=== PATIENT | female | born 1935 | race Caucasian/White ===

== ENCOUNTER 2023-05-16 20:18 | Inpatient (IN) | payer MEDICARE, MEDICAID ==
[~2023-05-16] VITALS: Ht 154.9 cm; Wt 49.4 kg
[~2023-05-16 20:18] MED LIST: CRAN425C6 GT; FAMO20TA8 GT; LEVO250T74 MT; LEVO75CA5 GT; QUET100T GT
[2023-05-16 20:25] VITALS: O2SAT 99
[2023-05-16 22:48] LABS: CHLORIDE 93 mEq/L (98-107); INDEX HEMOLYSI 2 (1-3); INDEX ICTERIC 1 (1-4); INDEX LIPEMIC 1 (1-3); POTASSIUM 4.8 mEq/L (3.5-5.1); SODIUM 135 mEq/L (136-145)
[2023-05-16 22:51] LABS: INR 0.9; PROTHROMBIN TIME 9.9 sec (9.6-11.0)
[2023-05-16 22:58] LABS: ALANINE AMINOTRANSFERASE 29 IU/L (13-61); ALBUMIN 2.1 g/dL (3.4-5.0); ASPARTATE AMINOTRANSFERASE 17 IU/L (15-37); BILIRUBIN TOTAL 0.3 mg/dL (0.1-1.0); CALCIUM 7.6 mg/dL (8.5-10.1); CARBON DIOXIDE 27 mEq/L (21-32); GLUCOSE 203 mg/dL (70-105); PROTEIN TOTAL 7.1 g/dL (6.0-8.3); TROPONIN I HIGH SENSITIVITY 14 ng/L (<54)
[2023-05-16] MEDS ORDERED: SODIUM CHLORIDE 0.9% 500 ML IV ONE (23:00)
[2023-05-16 23:03] LABS: UREA NITROGEN BLOOD 182 mg/dL (7-21)
[2023-05-16 23:04] LABS: LACTIC ACID 2.2 mmol/L (0.4-2.0)
[2023-05-16 23:31] LABS: HEMATOCRIT. 23.2 % (36.0-48.0); HEMOGLOBIN. 7.5 g/dL (12.0-16.0); MEAN CORPUSCULAR HGB CONC 32.2 g/dL (31.0-37.0); MEAN CORPUSCULAR VOLUME 96.5 fL (81.0-99.0); MEAN PLATELET VOLUME 9.2 fl (7.4-10.4); PLATELET 259 x1000/uL (130-400); RED BLOOD CELL COUNT 2.41 mill/uL (4.2-5.4); RED CELL DISTRIBUTION WIDTH 15.3 % (11.6-14.6); WHITE BLOOD COUNT 13.6 x1000/uL (4.5-11.0)
[2023-05-16 23:33] LABS: DIFFERENTIAL COMMENT 1
[2023-05-16 23:52] LABS: ANISOCYTOSIS 1+; PLATELET ESTIMATE NORMAL
[2023-05-17 01:01] LABS: CLARITY URINE TURBID (CLEAR); COLOR URINE YELLOW (YELLOW); GLUCOSE URINE TRACE (NEGATIVE); KETONES URINE NEGATIVE (NEGATIVE); LEUKOCYTE ESTERASE URINE 3+ (NEGATIVE); NITRITE URINE NEGATIVE (NEGATIVE); OCCULT BLOOD URINE 2+ (NEGATIVE); PH URINE 7.5 (4.5-8.0); PROTEIN URINE 2+ (NEGATIVE); SPECIFIC GRAVITY URINE 1.012 (1.005-1.030); UROBILINOGEN URINE 0.2 E.U./dL (0.2-1.0)
[2023-05-17 01:34] LABS: BACTERIA URINE 3+; SQUAMOUS EPITHELIAL CELL URINE 1+ /lpf (RARE/1+); WBC URINE TNTC /hpf (0-2)
[2023-05-17] MEDS: SODIUM CHLORIDE 0.9% 1,000 ML IV SCH ×2 (07:52→13:47)
[2023-05-17] MEDS ORDERED: ACETAMINOPHEN 325MG TABLET PO PRN (09:45)
[2023-05-17] MEDS ORDERED: MEROPENEM 1,000 MG in SODIUM CHLORIDE 0.9% 100 ML IV SCH (09:45)
[2023-05-17] MEDS ORDERED: ONDANSETRON HCL 4MG/2ML INJ IV PRN (09:45)
[2023-05-17 12:00] VITALS: BP 103/43; PULSE 80; RESP 17; TEMP 96.9
[2023-05-17 12:15] VITALS: BP 122/52; PULSE 55; RESP 18; TEMP 97.7
[2023-05-17] MEDS: MEROPENEM 500MG in NORMAL SALINE 50ML IV SCH (13:47)
[2023-05-17 18:00] VITALS: BP 108/48; PULSE 86; RESP 18; TEMP 97.4
[2023-05-17 20:00] VITALS: BP 123/57; PULSE 89; RESP 20; TEMP 98.5
[2023-05-18] VITALS (10 sets, daily range): BP systolic 119–146; BP diastolic 53–74; PULSE 74–114; RESP 16–24; TEMP 97.6–98.4
[2023-05-18 07:14] LABS: MEAN CORPUSCULAR HEMOGLOBIN 31.1 pg (28.0-32.0); MEAN CORPUSCULAR HGB CONC 32.9 g/dL (31.0-37.0); MEAN CORPUSCULAR VOLUME 94.6 fL (81.0-99.0); MEAN PLATELET VOLUME 8.5 fl (7.4-10.4); PLATELET 233 x1000/uL (130-400); RED BLOOD CELL COUNT 2.14 mill/uL (4.2-5.4); RED CELL DISTRIBUTION WIDTH 14.9 % (11.6-14.6)
[2023-05-18 07:35] LABS: DIFFERENTIAL COMMENT 1; HEMATOCRIT. 20.2 % (36.0-48.0); HEMOGLOBIN. 6.7 g/dL (12.0-16.0)
[2023-05-18 07:59] LABS: POTASSIUM 3.9 mEq/L (3.5-5.1)
[2023-05-18 08:06] LABS: CALCIUM 6.8 mg/dL (8.5-10.1); CREATININE 3.8 mg/dL (0.6-1.3)
[2023-05-18] MEDS: SODIUM CHLORIDE 0.9% 1,000 ML IV SCH (08:15)
[2023-05-18 11:19] LABS: ANISOCYTOSIS 1+; PLATELET ESTIMATE NORMAL
[2023-05-18] MEDS ORDERED: IPRATROPIUM/ALBUTEROL 0.5-3(2.5)MG/3ML NEB HHN PRN (14:00)
[2023-05-19] VITALS (9 sets, daily range): BP systolic 117–137; BP diastolic 62–72; PULSE 70–80; RESP 16–21; TEMP 97.6–98.2
[2023-05-19 06:54] LABS: HEMATOCRIT. 29.7 % (36.0-48.0); HEMOGLOBIN. 10.2 g/dL (12.0-16.0); MEAN CORPUSCULAR HGB CONC 34.4 g/dL (31.0-37.0); MEAN PLATELET VOLUME 8.4 fl (7.4-10.4); PLATELET 268 x1000/uL (130-400); RED BLOOD CELL COUNT 3.09 mill/uL (4.2-5.4); RED CELL DISTRIBUTION WIDTH 14.7 % (11.6-14.6); WHITE BLOOD COUNT 8.5 x1000/uL (4.5-11.0)
[2023-05-19 07:05] LABS: DIFFERENTIAL COMMENT 1
[2023-05-19 09:05] LABS: CALCIUM 6.6 mg/dL (8.5-10.1); CREATININE 3.6 mg/dL (0.6-1.3)
[2023-05-19] MEDS: MEROPENEM 500MG in NORMAL SALINE 50ML IV SCH (12:00)
[2023-05-19] MEDS: SODIUM CHLORIDE 0.45% 1,000 ML IV SCH ×2 (18:23→23:40)
[2023-05-19 18:42] LABS: PLATELET ESTIMATE NORMAL
[2023-05-20] VITALS (10 sets, daily range): BP systolic 128–142; BP diastolic 51–74; PULSE 67–80; RESP 14–24; TEMP 97.4–98.5
[2023-05-20 06:25] LABS: HEMATOCRIT. 28.3 % (36.0-48.0); HEMOGLOBIN. 9.6 g/dL (12.0-16.0); MEAN CORPUSCULAR HEMOGLOBIN 32.1 pg (28.0-32.0); MEAN CORPUSCULAR HGB CONC 33.8 g/dL (31.0-37.0); PLATELET 295 x1000/uL (130-400); RED BLOOD CELL COUNT 2.97 mill/uL (4.2-5.4); RED CELL DISTRIBUTION WIDTH 14.5 % (11.6-14.6); WHITE BLOOD COUNT 9.5 x1000/uL (4.5-11.0)
[2023-05-20 06:39] LABS: DIFFERENTIAL COMMENT 1
[2023-05-20 07:37] LABS: CALCIUM 6.6 mg/dL (8.5-10.1); CREATININE 3.4 mg/dL (0.6-1.3)
[2023-05-20] MEDS: MEROPENEM 500MG in NORMAL SALINE 50ML IV SCH (11:55)
[2023-05-20] MEDS: SODIUM CHLORIDE 0.45% 1,000 ML IV SCH (11:56)
[2023-05-20 14:29] LABS: PLATELET ESTIMATE NORMAL
[2023-05-21] VITALS (7 sets, daily range): BP systolic 131–147; BP diastolic 57–91; PULSE 75–86; RESP 13–17; TEMP 97.6–98.2
[2023-05-21] MEDS: SODIUM CHLORIDE 0.45% 1,000 ML IV SCH (01:45)
== END 2023-05-21 18:43 | DRG 853 ==
LOC: ER 20:18 → 6EST 05-17 00:53 → EDBEDREQ 05-17 02:12 → 5EST 05-18 14:03
PROVIDERS: ADMIT Family Medicine Adult Medicine; ATTEND Family Medicine Adult Medicine
PROC: 30233N1 Transfusion of Nonautologous Red Blood Cells into Peripheral Vein, Percutaneous Approach (ICD-10-PCS; 2023-05-18)
PROC: 0KBP0ZZ Excision of Left Hip Muscle, Open Approach (ICD-10-PCS; principal; 2023-05-20)
PROC: 0KBN0ZZ Excision of Right Hip Muscle, Open Approach (ICD-10-PCS; 2023-05-20)
DX: A41.9 Sepsis, unspecified organism (principal); E43 Unspecified severe protein-calorie malnutrition; J96.20 Acute and chronic respiratory failure, unspecified whether with hypoxia or hypercapnia; L89.154 Pressure ulcer of sacral region, stage 4; N17.9 Acute kidney failure, unspecified; G93.40 Encephalopathy, unspecified; N39.0 Urinary tract infection, site not specified; E87.1 Hypo-osmolality and hyponatremia; N20.2 Calculus of kidney with calculus of ureter; F03.93 Unspecified dementia, unspecified severity, with mood disturbance; D64.9 Anemia, unspecified; N18.9 Chronic kidney disease, unspecified; I12.9 Hypertensive chronic kidney disease with stage 1 through stage 4 chronic kidney disease, or unspecified chronic kidney disease; E11.22 Type 2 diabetes mellitus with diabetic chronic kidney disease; E86.9 Volume depletion, unspecified; M81.0 Age-related osteoporosis without current pathological fracture; F20.9 Schizophrenia, unspecified; Z74.01 Bed confinement status; Z86.73 Personal history of transient ischemic attack (TIA), and cerebral infarction without residual deficits; Z93.0 Tracheostomy status; Z79.899 Other long term (current) drug therapy; Z68.20 Body mass index [BMI] 20.0-20.9, adult
CPT/HCPCS: 36415; 71045; 74176; 76770; 80048; 80053; 81003; 82040; 82962; 83605; 84134; 84145; 84484; 85025; 86850; 86900; 86920; 87077; 87186; 93005; 94640; 99285; J2185; J7040; P9016; A4315